=== PATIENT | female | born 1960 | race Caucasian/White ===

== ENCOUNTER 2020-02-06 23:48 | Emergency (ER) | payer OTHER ==
[~2020-02-06] VITALS: Ht 154.9 cm; Wt 89.4 kg
[2020-02-07] MEDS ORDERED: ULTRAM 50MG TAB50 MG PO (02:03)
[2020-02-07 02:53] VITALS: BP 139/63
== END 2020-02-07 02:30 | disposition home or self-care (01) ==
LOC: ER 23:48
DX: S30.0XXA Contusion of lower back and pelvis, initial encounter (principal); S20.222A Contusion of left back wall of thorax, initial encounter; M25.512 Pain in left shoulder; M54.2 Cervicalgia; Z96.659 Presence of unspecified artificial knee joint; F17.210 Nicotine dependence, cigarettes, uncomplicated; W20.8XXA Other cause of strike by thrown, projected or falling object, initial encounter; Y93.89 Activity, other specified; Y92.69 Other specified industrial and construction area as the place of occurrence of the external cause; Y99.8 Other external cause status